=== PATIENT | female | born 1995 | race Caucasian/White ===

== ENCOUNTER → 2016-10-21 | Outpatient (CLI) | payer OTHER ==
[~2016-10-21] MED LIST: BCPILLS PO
--- NOTE | 2016-10-21 11:52 | DIAGNOSTIC IMAGING REPORT ---
RIGHT UPPER EXTREMITY VENOUS DOPPLER CLINICAL HISTORY: Right arm pain and swelling. COMPARISON STUDY: No previous studies for comparison. FINDINGS: The right internal jugular, subclavian, axillary, brachial, basilic, radial and ulnar veins were patent. No thrombus was identified within the deep system of the right upper extremity. IMPRESSION: No deep venous thrombus within the right upper extremity. Electronically signed by: Glody Salinas M.D. 10/21/2016 11:50 AM Dictated Date/Time: 10/21/2016 11:50 AM
== END | disposition home or self-care (01) ==
PROVIDERS: ATTEND Obstetrics & Gynecology
DX: M79.601 Pain in right arm (principal)